=== PATIENT | male | born 1940 | race Caucasian/White ===

== ENCOUNTER 2017-11-06 17:59 | Emergency (ER) | payer MEDICARE ==
[2017-11-06 20:45] LABS: Basophils % (A) 0 %; Eosinophils % (A) 0 %; HCT 38.9 % (39.0-53.0); HGB 12.9 gm/dL (13.0-17.5); Lymphocytes # (A) 0.7 k/uL (1.0-4.8); Lymphocytes % (A) 7 %; MCH 29.7 pg (25.0-35.0); MCHC 33.2 g/dL (31.0-37.0); MCV 89.5 fL (80.0-100.0); Monocytes # (A) 0.7 k/uL (0-1.0); Monocytes % (A) 8 %; Neutrophils # (A) 7.5 k/uL (1.3-7.7); Neutrophils % (A) 82 %; Platelet Count 223 k/uL (150-450); RBC 4.35 m/uL (4.30-5.90); RDW 14.5 % (11.5-15.5); WBC 9.1 k/uL (3.8-10.6)
[2017-11-06 20:50] LABS: Appearance,Urine Clear (Clear); Bilirubin,Urine Negative (Negative); Blood,Urine Negative (Negative); Color,Urine Yellow; Glucose,Urine (UA) Negative (Negative); Ketones,Urine Negative (Negative); Leukocyte Esterase,Urine Negative (Negative); Nitrite,Urine Negative (Negative); Protein,Urine Trace (Negative); Specific Gravity,Urine 1.012 (1.001-1.035); Urobilinogen,Urine <2.0 mg/dL (<2.0)
--- NOTE | 2017-11-06 20:55 | XR ---
EXAMINATION TYPE: XR chest 2V DATE OF EXAM: 11/06/2017 COMPARISON: NONE HISTORY: Upper respiratory infection. COPD. TECHNIQUE: Frontal and lateral views of the chest are obtained. FINDINGS: There is no heart failure nor confluent pneumonic infiltrate. Costophrenic angles are csico r. Thoracic aorta is atheromatous. There are sternal wires. IMPRESSION: No active cardiopulmonary disease. Normal heart.
--- NOTE | 2017-11-06 20:56 | XR ---
EXAMINATION TYPE: XR KUB DATE OF EXAM: 11/06/2017 COMPARISON: NONE HISTORY: Abdominal pain TECHNIQUE: 2 views FINDINGS: There is increased density over the abdomen consistent with ascites. There is no sign of fr ee air. There are some small bowel fluid levels. There are no pathologic calcifications over the kidn eys. Lung bases appear clear of consolidation. IMPRESSION: There is probably ascites. Small bowel fluid levels consistent with ileus.
[2017-11-06 20:57] LABS: Albumin 3.7 g/dL (3.5-5.0); Calcium 8.6 mg/dL (8.4-10.2); Total Bilirubin 0.7 mg/dL (0.2-1.3); Total Protein 5.7 g/dL (6.3-8.2)
--- NOTE | 2017-11-06 21:17 | ED ---
General Adult HPI - General Chief complaint: Nausea/Vomiting/Diarrhea Stated complaint: Diarrhea Time Seen by Provider: 11/06/17 19:18 Source: patient, RN notes reviewed Mode of arrival: ambulatory Limitations: no limitations - History of Present Illness Initial comments: 77-year-old male presents to the emergency department for a chief complaint of diarrhea 3 weeks. Patient did vomit once today but denies any nausea at this time. Patient has a history of stage IV kidney disease. He states his abdomen has been distended for the past few weeks. Patient states he saw his primary care provider today and had a chest x-ray and abdominal x-ray as well as blood work. Patient was given a script for levaquin and flagyl which he has not yet taken. He states after he went home they called and told him to go to the emergency department for evaluation of upper respiratory issue. Patients not sure why they had her come to the ER. Patient admits to cough no shortness of breath, no chest pain. Patient has no other complaints at this time including shortness of breath, chest pain, abdominal pain, nausea or vomiting, headache, or visual changes. - Related Data Home Medications Medication Instructions Recorded Confirmed Allopurinol [Zyloprim] 100 mg PO HS 11/06/17 11/06/17 Aspirin EC [Ecotrin Low Dose] 81 mg PO DAILY 11/06/17 11/06/17 Calcitriol 0.25 mcg PO Q7D 11/06/17 11/06/17 Clopidogrel [Plavix] 75 mg PO DAILY 11/06/17 11/06/17 Ergocalciferol (Vitamin D2) 50,000 unit PO Q30D 11/06/17 11/06/17 [Vitamin D2] Furosemide [Lasix] 40 mg PO HS 11/06/17 11/06/17 Isosorbide Mononitrate ER [Imdur] 60 mg PO BID 11/06/17 11/06/17 Levofloxacin [Levaquin] 750 mg PO DAILY 11/06/17 11/06/17 Magnesium Oxide [Mag-Ox] 400 mg PO HS 11/06/17 11/06/17 Multivitamins, Thera [Multivitamin 1 tab PO HS 11/06/17 11/06/17 (formulary)] Omeprazole 20 mg PO BID 11/06/17 11/06/17 Potassium Chloride ER [K-Dur 10] 10 meq PO DAILY 11/06/17 11/06/17 Ramipril [Altace] 10 mg PO BID 11/06/17 11/06/17 Simvastatin 40 mg PO HS 11/06/17 11/06/17 Tamsulosin HCl [Flomax] 0.4 mg PO DAILY 11/06/17 11/06/17 metroNIDAZOLE [Flagyl] 500 mg PO QID 11/06/17 11/06/17 Previous Rx's Medication Instructions Recorded Diphenox-Atrop 2.5-0.025 mg 1 - 2 tab PO QID PRN 3 Days #15 tab 11/06/17 [Lomotil] Allergies Allergy/AdvReac Type Severity Reaction Status Date / Time meperidine [From Demerol] Allergy Dyspnea Verified 11/06/17 19:15 Review of Systems ROS Statement: Those systems with pertinent positive or pertinent negative responses have been documented in the HPI. ROS Other: All systems not noted in ROS Statement are negative. Past Medical History Past Medical History: COPD, Hypertension Additional Past Medical History / Comment(s): stage 4 kidney disease. History of Any Multi-Drug Resistant Organisms: None Reported Additional Past Surgical History / Comment(s): tripple bipass, cardiac stents. Past Psychological History: No Psychological Hx Reported Smoking Status: Never smoker Past Alcohol Use History: None Reported Past Drug Use History: None Reported General Exam Limitations: no limitations General appearance: alert Head exam: Present: atraumatic, normocephalic, normal inspection Eye exam: Present: normal appearance ENT exam: Present: normal exam, mucous membranes moist Neck exam: Present: normal inspection, full ROM. Absent: tenderness, meningismus, lymphadenopathy Respiratory exam: Present: normal lung sounds bilaterally. Absent: respiratory distress, wheezes, rales, rhonchi, stridor Cardiovascular Exam: Present: regular rate, normal rhythm, normal heart sounds. Absent: systolic murmur, diastolic murmur, rubs, gallop, clicks GI/Abdominal exam: Present: distended, tenderness (mild diffuse abdominal tenderness to deep palpation, no tenderness to light palpation. ), normal bowel sounds, other (negative obturator sign). Absent: guarding, rebound, rigid Course Vital Signs 11/06/17 18:05 Temperature 98.3 F Pulse Rate 81 Respiratory 16 Rate Blood Pressure 102/68 O2 Sat by Pulse 95 Oximetry Medical Decision Making - Medical Decision Making 77-year-old male says to the emergency dept for chief complaint of diarrhea 3 weeks. Patient denies any fevers or chills at home. Patient has had mild diffuse abdominal pain but is mostly concerned with diarrhea at this point. No problems urinating.CBC unremarkable. CMP does show a creatinine of 2.62 with GFR 26. Patient has stage IV kidney disease. KUB shows probable ascites with small bowel fluid levels consistent with ileus. Chest x-ray shows no active cardiopulmonary disease. Reviewed by myself and Dr Pearce as well as read by radiology. Patient was given Flagyl and Levaquin outpatient. This was given by primary care provider. He will continue to take this. Cultures were sent well in the emergency department and will be monitored. Patient is to return to the emergency department if he has any worsening symptoms. - Lab Data Result diagrams: 11/06/17 20:25 11/06/17 20:25 Lab Results 11/06/17 11/06/17 11/06/17 Range/Units 20:25 20:25 20:25 WBC 9.1 (3.8-10.6) k/uL RBC 4.35 (4.30-5.90) m/uL Hgb 12.9 L (13.0-17.5) gm/dL Hct 38.9 L (39.0-53.0) % MCV 89.5 (80.0-100.0) fL MCH 29.7 (25.0-35.0) pg MCHC 33.2 (31.0-37.0) g/dL RDW 14.5 (11.5-15.5) % Plt Count 223 (150-450) k/uL Neutrophils % 82 % Lymphocytes % 7 % Monocytes % 8 % Eosinophils % 0 % Basophils % 0 % Neutrophils # 7.5 (1.3-7.7) k/uL Lymphocytes # 0.7 L (1.0-4.8) k/uL Monocytes # 0.7 (0-1.0) k/uL Eosinophils # 0.0 (0-0.7) k/uL Basophils # 0.0 (0-0.2) k/uL Sodium 137 (137-145) mmol/L Potassium 4.0 (3.5-5.1) mmol/L Chloride 103 (98-107) mmol/L Carbon Dioxide 26 (22-30) mmol/L Anion Gap 8 mmol/L BUN 37 H (9-20) mg/dL Creatinine 2.62 H (0.66-1.25) mg/dL Est GFR (CKD-EPI)AfAm 26 (>60 ml/min/1.73 sqM) Est GFR (CKD-EPI)NonAf 23 (>60 ml/min/1.73 sqM) Glucose 102 H (74-99) mg/dL Calcium 8.6 (8.4-10.2) mg/dL Total Bilirubin 0.7 (0.2-1.3) mg/dL AST 21 (17-59) U/L ALT 21 (21-72) U/L Alkaline Phosphatase 52 (38-126) U/L Total Protein 5.7 L (6.3-8.2) g/dL Albumin 3.7 (3.5-5.0) g/dL Amylase 101 (30-110) U/L Lipase 81 (23-300) U/L Urine Color Yellow Urine Appearance Clear (Clear) Urine pH 5.0 (5.0-8.0) Ur Specific [place] 1.012 (1.001-1.035) Urine Protein Trace H (Negative) Urine Glucose (UA) Negative (Negative) Urine Ketones Negative (Negative) Urine Blood Negative (Negative) Urine Nitrite Negative (Negative) Urine Bilirubin Negative (Negative) Urine Urobilinogen <2.0 (<2.0) mg/dL Ur Leukocyte Esterase Negative (Negative) Disposition Clinical Impression: Diarrhea Disposition: HOME SELF-CARE Condition: Good Instructions: Acute Diarrhea (ED) Additional Instructions: Please continue antibiotics as directed by primary care provider. Please take Lomotil as needed only if you have diarrhea. Follow up with primary care in 1- 2 days. Return to the emergency department if you have any worsening symptoms including worsening pain or fever Prescriptions: Diphenox-Atrop 2.5-0.025 mg [Lomotil] 1 - 2 tab PO QID PRN 3 Days #15 tab PRN Reason: Diarrhea Is patient prescribed a controlled substance at d/c from ED?: No Referrals: Reg Russell DO [Primary Care Provider] - 1-2 days Time of Disposition: 22:36
[2017-11-06 22:50] VITALS: BP 114/55; PULSE 80; RESP 18; TEMP 97.9
== END 2017-11-06 22:52 | disposition home or self-care (01) ==
LOC: EC 17:59
DX: R19.7 Diarrhea, unspecified (principal); R05 Cough; R11.10 Vomiting, unspecified; J44.9 Chronic obstructive pulmonary disease, unspecified; I12.9 Hypertensive chronic kidney disease with stage 1 through stage 4 chronic kidney disease, or unspecified chronic kidney disease; N18.4 Chronic kidney disease, stage 4 (severe); Z95.5 Presence of coronary angioplasty implant and graft; Z79.82 Long term (current) use of aspirin; Z79.02 Long term (current) use of antithrombotics/antiplatelets; Z79.899 Other long term (current) drug therapy; Z88.5 Allergy status to narcotic agent
CPT/HCPCS: 36415; 71046; 74018; 80053; 81003; 82150; 83630; 83690; 85025; 87045; 87046; 87086; 99284